=== PATIENT | male | born 1995 | race Caucasian/White ===

== ENCOUNTER 2020-05-29 16:16 | Emergency (ER) | payer MEDICAID, SELFPAY ==
[2020-05-29 16:17] VITALS: BP 139/99; PULSE 102; RESP 16; TEMP 36.9; O2SAT 98; BMI 26.2
--- NOTE | 2020-05-29 16:33 | ED.VIS.GEN ---
History of Present Illness Chief Complaint: Dental Informant: Patient Onset: Weeks Context: Gradual Onset Current Severity: Moderate Maximum Severity: Moderate Narrative: Patient presents secondary to dental pain and facial swelling. Patient states that he had a root canal in the past and the cap came off the tooth. He did not go get it taken care of immediately and approximately 2 weeks ago started having increased pain. He was seen by his dentist a week ago and placed on clindamycin. He was told he needs to see a oral surgeon. Patient states the pain is improved however today he had increased facial swelling. No fevers or chills. Past Medical History - Allergies and Home Meds Allergies/Adverse Reactions: Allergies Penicillins Allergy (Verified 05/29/20 16:17) Rash Primary Care Physician: Care Physician,No Primary [Primary Care Provider] - Prior records reviewed: Yes Smoking Status: Never smoker - Family History Maternal Family History: Reports: No pertinent history Review of Systems General: Denies: Chills, Fever Eyes: Denies: Visual changes - bilaterally ENT: Reports: - - Left facial swelling. Denies: Bilateral ear pain Cardiovascular: Denies: Chest pain Respiratory: Denies: Dyspnea, Cough Gastrointestinal: Denies: Abdominal pain, Nausea, Vomiting, Diarrhea Genitourinary: Denies: Dysuria Musculoskeletal: Denies: Swelling, Extremity Pain Skin: Denies: Rash Neurological: Denies: Headache Hematologic: Denies: Easy bruising, Easy bleeding Allergy: Denies: Uticaria Physical Exam Vital Signs/Narrative: Vital Signs Temp Pulse Resp BP Pulse Ox 05/29/20 16:17 98.5 F 102 H 16 139/99 H 98 Inital Vital Signs reviewed: Yes General: Well nourished, Well developed Eyes: Perrl, EOMI ENT: - - Mild left facial swelling. No significant erythema or warmth. Intraoral examination reveals left maxillary molars to be decayed and broken. No surrounding gum edema. No trismus. Cardiovascular: Regular rate, Regular rhythm, No murmurs Respiratory: No distress, CTA bilaterally Abdomen: Soft, Nontender Skin: Normal color Neurological: Alert, Oriented x3 Psychological: Normal affect Diagnostic/Tx/Re-eval - Medical Decision Making Patient has an allergy to penicillin and has been on clindamycin for the past week. He has 3 days of clindamycin left. We will place him on Cipro and Flagyl for oral coverage. He will be referred to Dr. Greenfield as oral surgeon. Patient is given return instructions. ED Disposition - Plan for ED Patient: Disposition: Home or Assisted Living Diagnosis: Dental abscess Instructions: ED Dental Abscess Facial Cellulitis Prescriptions: Ciprofloxacin [Cipro] 500 mg PO BID #14 tab Transmission Status: Pending to [facility] metroNIDAZOLE [Flagyl] 500 mg PO Q6H #40 tab Transmission Status: Pending to [facility] Referrals: Srinivas Greenfield DDS [STAFF PHYSICIAN] -
[2020-05-29] MEDS: Ciprofloxacin 500 MG Tablet PO (16:45)
[2020-05-29] MEDS: metroNIDAZOLE 500 MG Tablet PO (16:45)
[2020-05-29 16:49] VITALS: PULSE 103; RESP 15; O2SAT 99
== END 2020-05-29 16:49 | disposition home or self-care (01) ==
PROVIDERS: Emergency Provider Emergency Medicine
DX: K04.7 Periapical abscess without sinus (principal); K02.9 Dental caries, unspecified; Z79.899 Other long term (current) drug therapy; Z88.0 Allergy status to penicillin
CPT/HCPCS: 99283

== ENCOUNTER 2020-12-21 20:04 | Emergency (ER) | payer MEDICAID, SELFPAY ==
[2020-12-21 20:06] VITALS: BP 142/102; PULSE 95; RESP 16; TEMP 36.4; O2SAT 100; BMI 22.0
[2020-12-21 22:05] LABS: Absolute Lymphocyte Count 3.18 X10^3/uL (0.83-4.51); Absolute Neutrophil Count 6.5 X10^3/uL (2.0-7.7); Basophil# 0.04 X10^3/uL; Basophil% 0.4 % (0-1); Eosinophil# 0.22 X10^3/uL; Hematocrit 50.9 % (40-54); Lymphocyte # 3.18 X10^3/ul (0.83-4.51); Lymphocyte % 29.1 % (19-41); Mean Corp Hgb Conc 33.4 g/dL (32-36); Mean Corpuscular Hgb 31.4 pg (27.0-32.0); Mean Corpuscular Volume 93.9 fL (80-94); Mean Platelet Vol. 9.9 fl (6.2-12.0); Monocyte# 0.98 X10^3/uL; NRBC Flagged by Analyzer 0 % (0-5); Neutrophil # 6.47 X10^3/uL (2.7-7.7); Neutrophil % 59.1 % (47-70); Platelet Count 227 K/mm3 (150-450); RBC Distribution Width CV 12.1 % (11.6-14.6); RBC Distribution Width SD 41.8 fl (35.1-43.9); Red Blood Count 5.42 M/mm3 (4.6-6.2); White Blood Count 10.9 K/mm3 (4.4-11.0)
[2020-12-21 22:24] LABS: Alcohol, Blood (Medical)-Serum < 3.0 mg/dL
[2020-12-21 22:25] LABS: Anion Gap 5 (5-15); BUN 12 mg/dL (7-18); BUN/Creat Ratio 13.8 RATIO (10-20); Chloride 104 mmol/L (98-107); Creatinine, Serum 0.87 mg/dL (0.70-1.30); EST Glomerular Filtration Rate 113 mL/min (>60); Est Glom Filt Rate - Afr Amer 136 mL/min (>60); Glucose 98 mg/dL (74-106); Potassium 3.8 mmol/L (3.5-5.1); Sodium Level 138 mmol/L (136-145)
== END 2020-12-21 22:35 | disposition left against medical advice (07) ==
LOC: ED 22:48
DX: Z53.21 Procedure and treatment not carried out due to patient leaving prior to being seen by health care provider (principal)
CPT/HCPCS: 36415; 80048; 82077; 85025; 87426

== ENCOUNTER 2020-12-21 23:35 | Emergency (ER) | payer MEDICAID, SELFPAY ==
[2020-12-21 23:35] VITALS: BP 135/84; PULSE 108; RESP 16; TEMP 36.6; O2SAT 97; BMI 22.0
--- NOTE | 2020-12-22 00:49 | EDS_ITS ---
HPI History of Present Illness Chief Complaint: Substance Abuse Informant: patient Narrative Narrative: Here for evaluation stating his parents wanted him to get help. Marijuana use since a teenager however his last use was a week ago. He denies any symptoms. He has been sleeping however in the streets. He states he asked to go home and part of the criteria was to get help first. Currently denies any symptoms. Denies suicidal or homicidal ideations. Denies alcohol use, denies benzo use, denies opiate use. No other complaints Prior similar symptoms: Yes PFSH PFSH Home Medications ciprofloxacin HCl 500 mg PO BID #14 tab 05/29/20 [Rx Last Taken Unknown] clindamycin HCl 150 mg PO Q4H 05/29/20 [History Last Taken 05/29/20] metronidazole 500 mg PO Q6H #40 tab 05/29/20 [Rx Last Taken Unknown] Allergy/AdvReac Type Severity Reaction Status Date / Time Penicillins Allergy Rash Verified 12/21/20 20:06 Social History Smoking Status: Current every day smoker tobacco type: cigarettes ROS ROS ED Constitutional Constitutional ED: Denies chills, fever(s) or sweats Eyes Eyes: Denies change in vision ENT ENT ED: Denies dysphagia or sore throat Cardiovascular Cardiovascular: Denies chest pain, leg edema, palpitations or racing heartbeat Respiratory/Chest Respiratory/Chest: Denies cough, dyspnea or dyspnea on exertion Gastrointestinal Gastrointestinal: Denies abdominal pain, diarrhea, nausea or vomiting Genitourinary Genitourinary ED: Denies dysuria, hematuria or urinary frequency Musculoskeletal Musculoskeletal: Denies back pain, extremity pain or neck pain Integumentary Denies rash or wounds Neurologic Neurologic: Denies headache(s), paresthesias or weakness EXAM Physical Exam Const Vital Signs: 12/21/20 23:35 Temperature 98 F Temperature Source Temporal Pulse Rate 108 H Respiratory Rate 16 Blood Pressure 135/84 H Blood Pressure Mean 101 Pulse Ox 97 Oxygen Delivery Method Room Air Positive well nourished and well developed General Appearance ED: well developed and NAD HEENT Reports moist mucous membranes normocephalic and atraumatic Eyes PERRL, EOMs intact bilaterally and conjunctivae normal General Eye ED: Yes normal appearance of both eyes Neck no lymphadenopathy and supple General: Negative for tenderness Chest Wall Chest: Negative for tenderness Resp normal respiratory effort and normal air movement Effort and Inspection: symmetric chest movement; Negative for respiratory distress Cardio regular rate, regular rhythm and no murmurs Peripheral Pulses: pulses 2+ throughout GI normal to inspection, nondistended, normoactive bowel sounds and non-tender Palpation: Negative for guarding or rebound tenderness present Back/Spine no CVA tenderness and no thoracic nor lumbar tenderness Extremity normal to inspection General Extremety ED: Negative for edema or tenderness General Extremity: Negative for edema Neuro oriented x3 and no sensory deficits noted Sensorium / Orientation: awake and alert Psych mental status grossly normal Skin no rashes or lesions noted and no wounds MDM MDM MDM Narrative Medical decision making narrative: Patient nontoxic here for assistance however his use is speed and marijuana. His last use was a week ago. There is no current treatment plan that would require inpatient management. Discussed this with the patient. He understands. He is given follow-up with [facility] for outpatient assistance if needed. Discharge Plan Triage Chief Complaint: Substance Abuse ED Provider: Paco Barber Dx/Rx/DC Orders Clinical Impression: Marijuana use, Amphetamine and psychostimulant dependence Instructions: Understanding Synthetic Marijuana, Understanding Methamphetamine ... Prescriptions: No Action clindamycin HCl 150 MG capsule 150 mg PO Q4H RF: 0 ciprofloxacin HCl 500 MG tablet 500 mg PO BID Qty: 14 RF: 0 metronidazole 500 MG tablet 500 mg PO Q6H Qty: 40 RF: 0 Primary Care Provider: Care Physician,No Primary Referrals: Care Physician,No Primary [Primary Care Provider] - Activity Restrictions/Additional Instructions: Follow up with [address] [place] [id number] Disposition Disposition: Home, Self Care
== END 2020-12-22 01:00 | disposition home or self-care (01) ==
PROVIDERS: Emergency Provider Emergency Medicine
DX: F15.20 Other stimulant dependence, uncomplicated (principal); F17.210 Nicotine dependence, cigarettes, uncomplicated; Z79.899 Other long term (current) drug therapy; Z53.21 Procedure and treatment not carried out due to patient leaving prior to being seen by health care provider
CPT/HCPCS: 36415; 80048; 82077; 85025; 87426; 99282

== ENCOUNTER 2021-01-19 04:51 | Emergency (ER) | payer MEDICAID, SELFPAY ==
[2021-01-19 04:54] VITALS: BP 136/78; PULSE 89; RESP 16; TEMP 36.6; O2SAT 98; BMI 24.3
--- NOTE | 2021-01-19 05:51 | EX.ED.VIS.UR ---
HPI HPI - URI History of Present Illness Chief Complaint: Cold Sx Informant: patient Onset/Context/Timing Onset: Days Context: Gradual Onset Timing: Continuous Current Severity: Mild Maximum Severity: Mild Associated Symptoms Associated Symptoms: Positive for Nasal Congestion, Headache, Nausea and Nonproductive cough; Negative for Vomiting, Diarrhea and Shortness of Breath Narrative Narrative: 25-year-old male with URI type symptoms last several days. Wants to be tested for Covid. He is unvaccinated. He does not feel short of breath. He denies any vomiting or diarrhea. He said he had a nonproductive cough subjective fever and chills and a mild headache. He denies any significant past medical history. States he is not currently on any medications. Prior similar symptoms: Yes Recent Illness/Hospitalization: No ROS ROS ED ROS Narrative Cough. Subjective fever and chills. Mild headache. Review of Systems ROS Unobtainable: Denies due to encephalopathy Constitutional Constitutional ED: Reports chills, fever(s) and subjective Eyes Eyes: Denies change in vision ENT ENT ED: Denies ear pain or sore throat Cardiovascular Cardiovascular: Denies chest pain Respiratory/Chest Respiratory/Chest: Reports cough; Denies dyspnea Gastrointestinal Gastrointestinal: Reports nausea; Denies abdominal pain, diarrhea or vomiting Genitourinary Genitourinary ED: Denies dysuria Musculoskeletal Musculoskeletal: Denies myalgias Integumentary Denies rash Neurologic Neurologic: Reports headache(s) Psychiatric Psychiatric: Denies depression Endocrine Endocrinology: Denies polyuria Hematologic/Lymphatic Hematologic/Lymphatic: Denies easy bruising Allergic/Immunologic Allergic/Immunologic ED: Denies urticaria PFSH PFSH Medical History no medical history no medical history Home Medications NK 01/19/21 [History Last Taken Unknown] Allergy/AdvReac Type Severity Reaction Status Date / Time Penicillins Allergy Rash Verified 01/19/21 04:52 Surgical History no surgical history Social History Smoking Status: Current every day smoker tobacco type: cigarettes EXAM Physical Exam Narrative Exam Narrative: Young healthy male no acute distress vital signs stable afebrile. Pulse ox 90% on room air no hypoxia. Exam normal. HEENT exam normal. Lungs are clear equal symmetrical bilaterally. Heart regular rate and rhythm. Otherwise unremarkable. Const Vital Signs: 01/19/21 04:54 01/19/21 04:57 Temperature 97.9 F Temperature Source Temporal Pulse Rate 89 Respiratory Rate 16 Respiratory Pattern Normal Blood Pressure 136/78 H Blood Pressure Mean 97 Pulse Ox 98 Positive well nourished and well developed; Negative for obese, cachectic or contractures General Appearance ED: well developed and NAD; Negative for cachectic, contractures, cyanotic, diaphoretic or pallor Nutritional Appearance: Negative for cachectic or obese HEENT Reports moist mucous membranes normocephalic and atraumatic Eyes PERRL and EOMs intact bilaterally Neck no lymphadenopathy, supple, no meningeal signs and no JVD General: Negative for anterior neck swelling or lymphadenopathy Resp normal respiratory effort and clear to auscultation bilaterally Auscultation: Negative for rales, rhonchi or wheezes Cardio S1 normal heart sound, S2 normal heart sound and no murmurs Rate: regular rate Rhythm: regular rhythm GI non-tender, non-distended and no masses Inspection: Negative for abdominal distention Auscultation: normoactive bowel sounds Palpation: soft; Negative for tender or guarding Back/Spine no CVA tenderness and normal ROM General Back: Negative for CVA tenderness Extremity normal to inspection and full ROM General Extremety ED: Negative for cyanosis or tenderness General Extremity: Negative for cyanosis Neuro oriented x3 Sensorium / Orientation: alert, oriented to person, oriented to place and oriented to time; Negative for orientation impaired, lethargic or stuporous Motor Exam: strength 5/5 throughout Psych mental status grossly normal Skin General Skin Exam: Negative for jaundice or pallor Lesions: no lesions Rashes: no rashes MDM MDM MDM Narrative Medical decision making narrative: 25-year-old male URI symptoms. Covid test pending. Lungs are clear there is no signs of pneumonia. His vital signs are stable and he is not hypoxic. Repeat exam patient is doing well at 6:44 AM and he will be discharged home. Lab Data Attestation: I reviewed the patient's lab results. Lab results narrative: He does not need imaging. Covid antigen is negative. Discharge Plan Triage Chief Complaint: Cold Sx ED Provider: Lazaro Azul Dx/Rx/DC Orders Clinical Impression: Acute viral syndrome Instructions: ED Viral Syndrome (Adult) Prescriptions: No Action NK RF: 0 Primary Care Provider: Care Physician,No Primary Referrals: Care Physician,No Primary [Primary Care Provider] - Activity Restrictions/Additional Instructions: Plenty of fluids and rest. Tylenol and Motrin for body aches and pain. And fever. Follow-up if not improving. Return if worse. Disposition Disposition: Home, Self Care
== END 2021-01-19 06:47 | disposition home or self-care (01) ==
PROVIDERS: Emergency Provider Emergency Medicine
DX: B34.9 Viral infection, unspecified (principal); Z20.822 Contact with and (suspected) exposure to COVID-19; R09.81 Nasal congestion; R11.0 Nausea; R51.9 Headache, unspecified; R05.9 Cough, unspecified; F17.210 Nicotine dependence, cigarettes, uncomplicated
CPT/HCPCS: 87426; 99283

== ENCOUNTER 2021-09-06 19:28 | Emergency (ER) | payer MEDICAID, SELFPAY ==
[2021-09-06 19:30] VITALS: BP 130/88; PULSE 92; RESP 14; TEMP 36.6; O2SAT 98; BMI 50.3
--- NOTE | 2021-09-06 19:40 | EX.ED.DYSGE1 ---
HPI History of Present Illness Chief Complaint: Abscess Detail of Chief Complaint: Facial abscess x3 days Informant: patient Narrative Narrative: Patient presents to the emergency department with a left-sided facial abscess that started 3 days ago. Patient initially thought it was like a pimple so he try to open up and drain and was able to drain some pus from it. Patient states then it subsequently started filling up again so he drained it a second time. Patient denies any fevers. He has no medical history otherwise. Patient is allergic to penicillin. PFSH PFSH Medical History no medical history Home Medications clindamycin HCl [Cleocin HCl] 300 mg PO Q6H #40 capsule 09/06/21 [Rx Last Taken Unknown] Allergy/AdvReac Type Severity Reaction Status Date / Time Penicillins Allergy Rash Verified 09/06/21 19:29 Surgical History no surgical history Social History Smoking Status: Current every day smoker tobacco type: cigarettes ROS ROS ED Constitutional Constitutional ED: Reports systems reviewed and no addt'l complaints, except as documented; Denies body ache(s), change in weight or chills Eyes Eyes: Denies acute decrease in peripheral vision, change in vision, double vision or loss of vision ENT ENT ED: Reports none and other Details: Redness and swelling to left side of face ; Denies ear pain, lip swelling, loss taste/smell, neck pain, otalgia or sore throat Cardiovascular Cardiovascular: Reports none; Denies abdominal pain, chest pain with activity, leg edema, lightheadedness, palpitations, rapid heart rate or syncope Respiratory/Chest Respiratory/Chest: Reports none; Denies change in mental status, dry cough, dyspnea, hemoptysis, shortness of breath at rest or shortness of breath with exertion Gastrointestinal Gastrointestinal: Reports none; Denies abdominal pain, change in stool character, diarrhea, hematemesis, hematochezia, melena, rectal bleeding or vomiting Genitourinary Genitourinary ED: Reports none; Denies abdominal discomfort, anuria, dysuria, genital pain or polyuria Musculoskeletal Musculoskeletal: Reports none; Denies arthralgias, back pain, difficulty walking, extremity pain, muscle weakness or myalgias Integumentary Reports none; Denies abscess or rash Neurologic Neurologic: Reports none; Denies abnormal gait, confusion, focal weakness, frequent falls, headache(s), loss of vision, numbness, paresthesias, radicular pain, vertigo or weakness Psychiatric Psychiatric: Reports systems reviewed and no addt'l complaints, except as documented and none; Denies behavioral changes, confusion, difficulty concentrating, hallucinations, suicidal ideation, tactile hallucinations or visual hallucinations Endocrine Endocrinology: Denies none, cold intolerance, excessive sweating, fatigue or heat intolerance Hematologic/Lymphatic Hematologic/Lymphatic: Reports none; Denies anemia, easy bleeding or easy bruising Allergic/Immunologic Allergic/Immunologic ED: Denies as per HPI, none, lip swelling, mouth swelling, throat swelling, tongue swelling or hives EXAM Physical Exam Const Vital Signs: 09/06/21 19:30 Temperature 98 F Temperature Source Temporal Pulse Rate 92 Respiratory Rate 14 Blood Pressure 130/88 H Blood Pressure Mean 102 Pulse Ox 98 Oxygen Delivery Method Room Air Positive well nourished and well developed General Appearance ED: well developed and NAD HEENT Reports TM's clear and moist mucous membranes HEENT Narrative: Patient has an area of soft tissue swelling left side of face just lateral to the lateral aspect of the lips. There are some subtle fluctuance noted. There is an excoriated area where patient had drained the abscess and there is some scabbing. There is surrounding erythema. Patient has no dental tenderness on exam. I do not feel this is a dental abscess. normocephalic and atraumatic; Negative for trauma or tenderness Tympanic Membrane ED: Yes TM's clear Eyes PERRL and EOMs intact bilaterally General Eye ED: Negative for pale conjunctiva or scleral icterus Neck no lymphadenopathy, supple and no JVD General: Negative for tenderness Chest Wall inspection of chest normal and palpation of chest normal Chest: Negative for tenderness Resp normal respiratory effort and clear to auscultation bilaterally Effort and Inspection: Negative for respiratory distress or pain with movement Auscultation: Negative for rhonchi, wheezes or diminished lung sounds Cardio regular rate, regular rhythm, S1 normal heart sound, S2 normal heart sound and no murmurs Peripheral Pulses: pulses 2+ throughout GI normal to inspection, nondistended, normoactive bowel sounds, soft to palpation, non-tender, non-distended and no masses Back/Spine no CVA tenderness and no thoracic nor lumbar tenderness Extremity normal to inspection General Extremety ED: Negative for edema General Extremity: Negative for edema Neuro oriented x3, CN's II-XII intact bilaterally, no sensory deficits noted and gait normal Sensorium / Orientation: awake, alert, oriented to person, oriented to place and oriented to time Motor Exam: strength 5/5 throughout and strength abnormal Psych mental status grossly normal Skin no rashes or lesions noted and no wounds MDM MDM MDM Narrative Medical decision making narrative: Patient had incision and drainage of abscess. Patient will be starting clindamycin given first dose in the emergency department. Patient advised to return if increasing pain, redness, swelling, fevers, or condition should worsen anyway. Procedures Other Procedures Procedure(s): Incision and drainage of left facial abscess-area sterilely draped and prepped. Skin cleansed with Shur-Clens and anesthetized locally with 1% lidocaine total of 3 cc. Using an 11 blade a 1 cm incision was made into the most fluctuant portion of the suspected abscess. Immediately return large amount of free-flowing purulent debris. With pressure I was able to express large amount of purulent debris from the wound. I irrigated the area with saline. Clean dressing was applied. Patient tolerated procedure well. Discharge Plan Triage Chief Complaint: Abscess ED Provider: Whitney Rendon Dx/Rx/DC Orders Clinical Impression: Encounter for drainage of abscess Instructions: ED Abscess Incision And Drainage Prescriptions: New clindamycin HCl [Cleocin HCl] 300 MG capsule 300 mg PO Q6H Qty: 40 RF: 0 Primary Care Provider: Care Physician,No Primary Referrals: Care Physician,No Primary [Primary Care Provider] - Disposition Disposition: Home, Self Care
[2021-09-06] MEDS: Clindamycin HCl 150 MG Capsule 300 MG PO (20:06)
[2021-09-06] MEDS: Lidocaine 1% (5 ml sdv) 5 ML Vial 4 ML INFILT (20:07)
== END 2021-09-06 21:24 | disposition home or self-care (01) ==
PROVIDERS: Emergency Provider Emergency Medicine; Visit Provider Emergency Medicine
DX: L02.01 Cutaneous abscess of face (principal); F17.210 Nicotine dependence, cigarettes, uncomplicated
CPT/HCPCS: 10060; 99283

== ENCOUNTER 2021-10-27 16:22 | Emergency (ER) | payer MEDICAID, SELFPAY ==
[2021-10-27] VITALS (7 sets, daily range): BP systolic 122–147; BP diastolic 77–91; PULSE 75–111; RESP 12–24; TEMP 37; O2SAT 95–98; BMI 22.0
--- NOTE | 2021-10-27 16:30 | CT_ITS ---
EXAMINATION : Head CT w/out contrast HISTORY : Injury/Pain COMPARISON : None. TECHNIQUE : Multiple contiguous axial images were obtained from the skull base to the vertex without intravenous contrast. A radiation dose optimization technique was used for this scan. FINDINGS : The ventricles and sulci are normal in size. There is no evidence for acute intracranial hemorrhage, mass effect, or midline shift. There is no extra-axial fluid collection. There is normal antonio-white differentiation, without CT evidence of acute ischemia or infarct. The skull base and calvarium are unremarkable. The orbits are unremarkable. The paranasal sinuses are clear. The mastoid air cells are well-aerated. The soft tissues are unremarkable. CT/Brain/Head without Contrast IMPRESSION: No acute intracranial abnormality. Electronically Signed: Wilfredo Sullivan MD at 18:15 EDT ,
--- NOTE | 2021-10-27 16:30 | CT_ITS ---
INDICATION: Injury/Pain EXAMINATION: CT Spine Cervical W/O Contrast Injection TECHNIQUE: Helically acquired images were obtained of the cervical spine. 2D reformatted images were reviewed. A radiation dose optimization technique was used for this scan. IV Contrast dosage and agent: None. COMPARISON: None. FINDINGS: VERTEBRAE: No fracture or traumatic subluxation. No discrete lytic or blastic abnormality. Normal alignment. Normal craniocervical junction and cervicothoracic junction. DISCS and SPINAL CANAL: Disc heights are preserved. No critical stenosis. NECK SOFT TISSUES: No prevertebral soft tissue swelling. There is no cervical adenopathy. LUNG APICES: Clear. CT/Spine Cervical without Contras IMPRESSION: No evidence of acute cervical spinal fracture or spondylolisthesis. Electronically Signed: Wilfredo Sullivan MD at 18:22 EDT ,
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
[2021-10-27] MEDS: Diphth,Pertuss(Acell),Tet Vac 0.5 ML Vial IM (17:00)
[2021-10-27] MEDS: Lidocaine/Epi/Tetracaine 50 ML 1 APPLIC TOPICAL (17:01)
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
--- NOTE | 2021-10-27 19:22 | RAD_ITS ---
STUDY: X-RAY - LEFT TIBIA AND FIBULA REASON FOR EXAM: Male, 26 years old. Injury/Pain TECHNIQUE: Frontal and lateral view(s) of the tibia and fibula were obtained. COMPARISON: None. FINDINGS: Normal visualized tibia. Normal visualized fibula. There is no demonstrated acute fracture. The soft tissue structures are unremarkable. RAD/Tibia & Fibula 2 Views IMPRESSION: Normal x-ray examination of the tibia and fibula. Electronically Signed: Jesús Herron MD at 20:38 EDT ,
[2021-10-27] MEDS: Acetaminophen 500 MG Tablet 1000 MG PO (19:31)
--- NOTE | 2021-10-27 19:38 | RAD_ITS ---
STUDY: X-RAY - LEFT ANKLE REASON FOR EXAM: Male, 26 years old. Injury/Pain TECHNIQUE: 3 view(s) of the ankle. COMPARISON: None. FINDINGS: Normal visualized distal tibia and fibula. Normal medial and lateral malleoli. Normal tibiotalar articulation and ankle mortise. Normal visualized talus and calcaneus. The visualized subtalar, talonavicular, calcaneocuboid and tarsal articulations are normal. There is no demonstrated fracture. The soft tissue structures are unremarkable. RAD/Ankle min 3 Views IMPRESSION: Normal x-ray examination of the ankle. Electronically Signed: Jesús Herron MD at 20:40 EDT ,
== END 2021-10-27 21:17 | disposition home or self-care (01) ==
PROVIDERS: Emergency Provider Emergency Medicine; Visit Provider Emergency Medicine
DX: S01.01XA Laceration without foreign body of scalp, initial encounter (principal); R40.2412 Glasgow coma scale score 13-15, at arrival to emergency department; S41.111A Laceration without foreign body of right upper arm, initial encounter; Z23 Encounter for immunization; R41.3 Other amnesia; M54.2 Cervicalgia; V13.4XXA Pedal cycle driver injured in collision with car, pick-up truck or van in traffic accident, initial encounter; Y93.55 Activity, bike riding; F17.210 Nicotine dependence, cigarettes, uncomplicated; Z59.00 Homelessness unspecified
CPT/HCPCS: 12001; 70450; 72125; 73590; 73610; 90715; 99285

== ENCOUNTER 2021-11-11 20:43 | Emergency (ER) | payer MEDICAID, SELFPAY ==
[2021-11-11 20:44] VITALS: BP 130/87; PULSE 115; RESP 18; TEMP 36.6; O2SAT 100; BMI 22.8
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
== END 2021-11-11 23:09 | disposition home or self-care (01) ==
PROVIDERS: Emergency Provider Emergency Medicine; Visit Provider Emergency Medicine
DX: S01.01XD Laceration without foreign body of scalp, subsequent encounter (principal); V99.XXXD Unspecified transport accident, subsequent encounter; F17.210 Nicotine dependence, cigarettes, uncomplicated
CPT/HCPCS: 99282

== ENCOUNTER 2021-12-21 17:13 | Emergency (ER) | payer MEDICAID, SELFPAY ==
[2021-12-21 17:14] VITALS: BP 125/76; PULSE 112; RESP 14; TEMP 35.7; BMI 23.4
[2021-12-21 18:14] VITALS: BP 125/76; PULSE 112; RESP 14; TEMP 35.7
--- NOTE | 2021-12-21 18:35 | EX.ED.DYSGE1 ---
HPI History of Present Illness Chief Complaint: Abscess Detail of Chief Complaint: Submental chin abscess. Informant: patient Onset/Context/Timing Onset: Days Context: Gradual Onset Timing: Continuous Current Severity: Mild Maximum Severity: Mild Narrative Narrative: 26-year-old male no seen past medical history. Has had an abscess before it need to be drained. He said several days ago he developed pain and swelling below his chin. Now is worse. He denies any fever or chills. Also on his right hand index finger on the dorsum on the proximal phalanx he opened up a wound there and had some purulent discharge. Has also been there several days. Prior similar symptoms: Yes Recent Illness/Hospitalization: No PFSH PFSH Medical History no medical history no medical history Home Medications acetaminophen 650 mg tablet,extended release (Tylenol 8 Hour) 650 mg PO Q8H PRN pain #30 tabs 10/27/21 [Rx Last Taken Unknown] clindamycin HCl 150 mg capsule 300 mg PO 4X/DAY #80 caps 12/21/21 [Rx Last Taken Unknown] Allergy/AdvReac Type Severity Reaction Status Date / Time Penicillins Allergy Rash Verified 12/21/21 17:14 Social History Smoking Status: Current every day smoker tobacco type: cigarettes ROS ROS ED ROS Narrative Abscess. Review of Systems ROS Unobtainable: Denies due to encephalopathy Constitutional Constitutional ED: Denies chills or fever(s) Eyes Eyes: Denies blurry vision ENT ENT ED: Denies ear pain Cardiovascular Cardiovascular: Denies chest pain Respiratory/Chest Respiratory/Chest: Denies cough Gastrointestinal Gastrointestinal: Denies abdominal pain Genitourinary Genitourinary ED: Denies dysuria Musculoskeletal Musculoskeletal: Denies arthralgias Integumentary Reports abscess Neurologic Neurologic: Denies headache(s) Psychiatric Psychiatric: Denies anxiety Endocrine Endocrinology: Denies cold intolerance Hematologic/Lymphatic Hematologic/Lymphatic: Reports none; Denies anemia Allergic/Immunologic Allergic/Immunologic ED: Denies mouth swelling or tongue swelling EXAM Physical Exam Narrative Exam Narrative: 26-year-old male no acute distress. Vital signs stable afebrile. H EENT exam give dry reactive light. Posterior pharynx normal. Submental to the chin there is an abscess on the skin which is tender. Mildly fluctuant. Will need to be drained. Trachea midline. No lymphadenopathy. Lungs clear to auscultation. Heart regular rhythm. Abdomen soft. Moving all 4 extremities. Dorsum of his right hand on the index finger proximal phalanx there is also an infection. Nothing to drain. He had previously unroofed this and get some drainage out. He has full flexion-extension all digits. There is no lymphangitic streaking. Const Vital Signs: 12/21/21 17:14 12/21/21 18:13 12/21/21 18:14 Temperature 96.2 F L 96.2 F L Temperature Source Temporal Temporal Pulse Rate 112 H 112 H Respiratory Rate 14 14 Respiratory Effort Normal Non-Labored Respiratory Pattern Normal Blood Pressure 125/76 H 125/76 H Blood Pressure Mean 92 92 Pulse Ox 12/21/21 20:45 Temperature Temperature Source Pulse Rate 98 Respiratory Rate 16 Respiratory Effort Respiratory Pattern Blood Pressure 120/70 Blood Pressure Mean 86 Pulse Ox 97 Positive well nourished and well developed; Negative for obese, cachectic, contractures or unkempt General Appearance ED: well developed and NAD; Negative for unkempt, cachectic, contractures, cyanotic, diaphoretic or pallor Nutritional Appearance: Negative for cachectic or obese HEENT Reports moist mucous membranes; Denies dry mucous membranes Negative for trauma or tenderness Mouth ED: No dry mucous membranes Mouth: No dry mucous membranes Eyes PERRL and EOMs intact bilaterally General Eye ED: Negative for pale conjunctiva or scleral icterus Neck no lymphadenopathy, supple and no JVD Neck Narrative: Submental abscess right side of his chin. General: tenderness Chest Wall inspection of chest normal and palpation of chest normal Chest: Negative for other Resp normal respiratory effort and clear to auscultation bilaterally Effort and Inspection: Negative for retractions Auscultation: Negative for rales, rhonchi or wheezes Cardio regular rate, regular rhythm, S1 normal heart sound, S2 normal heart sound and no murmurs Palpation: Negative for palpable S3 Rate: Negative for bradycardia Rhythm: Negative for abnormal rhythm GI normal to inspection, nondistended, normoactive bowel sounds, non-tender, non-distended and no masses Inspection: Negative for abdominal distention Auscultation: normoactive bowel sounds Palpation: soft; Negative for tender, guarding, splenomegaly or mass Back/Spine no CVA tenderness Extremity normal to inspection Extremity Narrative: Right index finger infection. Full range of motion. No sausage digit. No lymphangitic streaking. General Extremety ED: Yes edema and tenderness General Extremity: edema Neuro oriented x3 and CN's II-XII intact bilaterally Sensorium / Orientation: alert; Negative for orientation impaired Motor Exam: strength 5/5 throughout Psych mental status grossly normal Appearance: Negative for unkempt Attitude: No agitated Mood & Affect: Negative for depressed, anxious or tearful Skin no rashes or lesions noted and No no wounds General Skin Exam: elasticity normal; Negative for jaundice or pallor Rashes: No rashes noted Trauma: Negative for abrasion Wounds: wounds noted MDM MDM MDM Narrative Medical decision making narrative: 26-year-old male with a submental abscess that will need I&D. He has a penicillin allergy he will be started on clindamycin which he has had before in the past. He also has a infection on the skin of his right index finger which does not need to be drained at this time. Patient had firm indurated tissue in his submental region of his chin. Red and tender. Nurses applied let. Locally anesthetized with lidocaine. Made about 1-1 and half centimeter incision. Blood but no cas pus. Probed with a forcep and again no pus. This is mainly just infected indurated tissue without a walled off pocket of pus. Patient be given a dose of clindamycin here. Placed on it for 10 days. Follow-up with starts in clinic. Procedures Other Procedures Procedure(s): Incision and drainage of submental region near chin. Local anesthetized with let and lidocaine subcu. Made a 1 cm incision. Blood but no pus. Probed the wound again no significant pus. Discharge Plan Triage Chief Complaint: Abscess ED Provider: Lazaro Azul Dx/Rx/DC Orders Clinical Impression: Abscess Instructions: Abscess Drainage Prescriptions: New clindamycin HCl 150 mg capsule 300 mg PO 4X/DAY Qty: 80 0RF No Action acetaminophen [Tylenol 8 Hour] 650 mg tablet extended release 650 mg PO Q8H PRN (Reason: pain) Qty: 30 0RF Primary Care Provider: Care Physician,No Primary Referrals: Sofía Dlay [Non-Staff] - 3-5 Days Care Physician,No Primary [Primary Care Provider] - Activity Restrictions/Additional Instructions: Warm compresses to the infection on your chin. Also to your finger. Clindamycin 4 times a day 300 mg each time for 10 days. Motrin and Tylenol for pain. Follow-up with the [facility] for further evaluation. Return if a lot worse. Disposition Disposition: Home, Self Care
[2021-12-21] MEDS: Lidocaine/Epi/Tetracaine 50 ML 1 APPLIC TOPICAL (19:11)
[2021-12-21] MEDS: Lidocaine 1% (20 ml mdv) 20 ML Vial 6 ML INFILT (19:11)
[2021-12-21 20:45] VITALS: BP 120/70; PULSE 98; RESP 16; O2SAT 97
[2021-12-21] MEDS: Ibuprofen 600 MG Tablet PO (23:17)
[2021-12-21] MEDS: Clindamycin HCl 150 MG Capsule 300 MG PO (23:17)
[2021-12-21 23:37] VITALS: BP 120/71; PULSE 89; RESP 16; O2SAT 97
== END 2021-12-21 23:38 | disposition home or self-care (01) ==
PROVIDERS: Emergency Provider Emergency Medicine; Visit Provider Emergency Medicine
DX: L02.01 Cutaneous abscess of face (principal); L08.9 Local infection of the skin and subcutaneous tissue, unspecified; F17.210 Nicotine dependence, cigarettes, uncomplicated
CPT/HCPCS: 10060; 99283

== ENCOUNTER 2021-12-24 22:26 | Emergency (ER) | payer MEDICAID, SELFPAY ==
[2021-12-24 22:27] VITALS: BP 130/88; PULSE 100; RESP 16; TEMP 36.4; O2SAT 98; BMI 23.6
--- NOTE | 2021-12-24 22:49 | EX.ED.DYSGE1 ---
HPI History of Present Illness Chief Complaint: Abscess Informant: patient Narrative Narrative: Patient presents for concerns of drainage from his chin area. He was seen 4 days ago had incision and drainage in the lower chin region. He is placed on clindamycin. Minimal drainage from the lower section however due to drainage of higher he was concerned. There is no fevers. Also reported he was seen for finger wound does continue to drain but the redness has improved. Prior similar symptoms: Yes PFSH PFSH Home Medications acetaminophen 650 mg tablet,extended release (Tylenol 8 Hour) 650 mg PO Q8H PRN pain #30 tabs 10/27/21 [Rx Last Taken Unknown] clindamycin HCl 150 mg capsule 300 mg PO 4X/DAY #80 caps 12/21/21 [Rx Last Taken Unknown] Allergy/AdvReac Type Severity Reaction Status Date / Time Penicillins Allergy Rash Verified 12/24/21 22:29 Social History Smoking Status: Current every day smoker tobacco type: cigarettes ROS ROS ED Constitutional Constitutional ED: Denies chills, fever(s) or sweats Eyes Eyes: Denies change in vision ENT ENT ED: Denies dysphagia or sore throat Cardiovascular Cardiovascular: Denies chest pain, leg edema, palpitations or racing heartbeat Respiratory/Chest Respiratory/Chest: Denies cough, dyspnea or dyspnea on exertion Gastrointestinal Gastrointestinal: Denies abdominal pain, diarrhea, nausea or vomiting Genitourinary Genitourinary ED: Denies dysuria, hematuria or urinary frequency Musculoskeletal Musculoskeletal: Denies back pain, extremity pain or neck pain Integumentary Reports abscess and wounds; Denies rash Neurologic Neurologic: Denies headache(s), paresthesias or weakness EXAM Physical Exam Const Vital Signs: 12/24/21 22:27 12/24/21 23:37 Temperature 97.5 F L 97.5 F L Temperature Source Temporal Temporal Pulse Rate 100 100 Respiratory Rate 16 16 Blood Pressure 130/88 H 130/88 H Blood Pressure Mean 102 102 Pulse Ox 98 98 Oxygen Delivery Method Room Air Room Air Positive well nourished and well developed General Appearance ED: well developed and NAD HEENT Reports moist mucous membranes HEENT Narrative: Patient with carrillo and mustache, right lower chin noted previous incision with scabbing there is circumferential abscess with fluctuance on the anterior aspect of the chin, no active drainage. normocephalic and atraumatic Eyes PERRL, EOMs intact bilaterally and conjunctivae normal General Eye ED: Yes normal appearance of both eyes Neck no lymphadenopathy and supple General: Negative for tenderness Chest Wall Chest: Negative for tenderness Resp normal respiratory effort and normal air movement Effort and Inspection: symmetric chest movement; Negative for respiratory distress Cardio regular rate, regular rhythm and no murmurs Peripheral Pulses: pulses 2+ throughout GI normal to inspection, nondistended, normoactive bowel sounds and non-tender Palpation: Negative for guarding or rebound tenderness present Back/Spine no CVA tenderness and no thoracic nor lumbar tenderness Extremity Extremity Narrative: Right hand pinky finger dorsal aspect of the proximal phalanx, open wound with mild drainage's localized erythema there is no streaking into the hand. General Extremety ED: Negative for edema or tenderness General Extremity: Negative for edema Neuro oriented x3 and no sensory deficits noted Sensorium / Orientation: awake and alert Skin no rashes or lesions noted and no wounds MDM MDM MDM Narrative Medical decision making narrative: Patient reports increasing swelling for his chin on antibiotics. His finger wound clinically is improving per history. I discussed prep for incise and drainage in the fluctuant area for which he agreed. During preparation and with local analgesia there is increasing drainage from his previous incision site. I was able to express out significant mount of exudates with fluctuance improved. Additional straight incision was placed over the fluctuant area to assist with continued drainage. He will finish his antibiotics and use Tylenol as needed. Return precautions. Follow-up given as an outpatient. All questions were answered. Procedure note: Verbal consent. Normal sterile conditions. Wound was cleansed alcohol prep pads. Total of 4 cc lidocaine 1% for local analgesia. Upon injection there was increasing fluid drainage from the lower wound site. Exudate drainage continued to drain. Stable express for out. Betadine prep for lower chin portion with a 11 blade straight incision was made there is no additional exudates. Wound cleansed with normal saline. Patient tolerated procedure well. Discharge Plan Triage Chief Complaint: Abscess ED Provider: Paco Barber Dx/Rx/DC Orders Clinical Impression: Abscess of chin, Visit for wound check Instructions: Abscess Drainage Prescriptions: No Action acetaminophen [Tylenol 8 Hour] 650 mg tablet extended release 650 mg PO Q8H PRN (Reason: pain) Qty: 30 0RF clindamycin HCl 150 mg capsule 300 mg PO 4X/DAY Qty: 80 0RF Primary Care Provider: Care Physician,No Primary Referrals: Sofía Daly [Non-Staff] - 1 Week Care Physician,No Primary [Primary Care Provider] - Activity Restrictions/Additional Instructions: Incise and drain increasing exudative drainage of chin. Finish your clindamycin. Tylenol or Motrin as needed. Wound care as discussed. Return if any worsening symptoms. Disposition Disposition: Home, Self Care Discharge Date/Time: 12/24/21 23:44
[2021-12-24 23:37] VITALS: BP 130/88; PULSE 100; RESP 16; TEMP 36.4; O2SAT 98
[2021-12-24] MEDS: Lidocaine 1% (20 ml mdv) 20 ML Vial INFILT (23:38)
== END 2021-12-24 23:44 | disposition home or self-care (01) ==
PROVIDERS: Emergency Provider Emergency Medicine; Visit Provider Emergency Medicine
DX: L02.01 Cutaneous abscess of face (principal); F17.210 Nicotine dependence, cigarettes, uncomplicated
CPT/HCPCS: 10060; 99283

== ENCOUNTER 2022-04-09 09:23 | Emergency (ER) | payer MEDICAID, SELFPAY ==
[2022-04-09 09:24] VITALS: BP 119/76; PULSE 98; RESP 16; TEMP 36.4; O2SAT 98; BMI 22.8
--- NOTE | 2022-04-09 09:53 | EDS_ITS ---
HPI History of Present Illness Chief Complaint: General Illness Informant: patient Onset/Context/Timing Onset: Weeks Context: Gradual Onset Timing: Waxes and wanes Current Severity: Mild Maximum Severity: Moderate Narrative Narrative: Patient presents with concern for COVID. He states he is been sick for the past week or 2 with cough and congestion. He reports subjective fever. [facility] Medical History no medical history no medical history Home Medications NK 04/09/22 [History Last Taken Unknown] Allergy/AdvReac Type Severity Reaction Status Date / Time Penicillins Allergy Rash Verified 04/09/22 09:26 Surgical History no surgical history Social History Smoking Status: Current every day smoker tobacco type: cigarettes ROS ROS ED Constitutional Constitutional ED: Reports chills, fever(s), subjective and sweats Eyes Eyes: Denies change in vision or discharge from eye(s) ENT ENT ED: Denies discharge from eye(s), rhinorrhea or sore throat Cardiovascular Cardiovascular: Denies chest pain or palpitations Respiratory/Chest Respiratory/Chest: Reports cough, dyspnea and sputum Gastrointestinal Gastrointestinal: Denies abdominal pain, diarrhea, nausea or vomiting Genitourinary Genitourinary ED: Denies dysuria Musculoskeletal Musculoskeletal: Denies back pain or extremity pain Integumentary Denies Abrasions or rash Neurologic Neurologic: Denies headache(s) or weakness Psychiatric Psychiatric: Denies anxiety or depression Allergic/Immunologic Allergic/Immunologic ED: Denies lip swelling or urticaria EXAM Physical Exam Const Vital Signs: 04/09/22 09:24 04/09/22 09:30 Temperature 97.6 F L Temperature Source Temporal Pulse Rate 98 Respiratory Rate 16 Respiratory Effort Normal Non-Labored Respiratory Pattern Normal Blood Pressure 119/76 Blood Pressure Mean 90 Pulse Ox 98 Oxygen Delivery Method Room Air Positive well nourished and well developed General Appearance ED: well developed HEENT Reports normocephalic and head/scalp atraumatic Eyes PERRL and EOMs intact bilaterally Neck supple Chest Wall inspection of chest normal and palpation of chest normal Resp normal respiratory effort and clear to auscultation bilaterally Cardio regular rate and regular rhythm GI normal to inspection, nondistended, normoactive bowel sounds Palpation: soft Extremity normal to inspection Neuro oriented x3 and no sensory deficits noted Sensorium / Orientation: alert Motor Exam: strength 5/5 throughout Psych mental status grossly normal Skin no rashes or lesions noted MDM MDM MDM Narrative Medical decision making narrative: Swab for COVID and influenza obtained. Chest x-ray ordered. Radiography Chest X-Ray - ED: 2 View, Read by ED Physician, Normal, Heart, Lungs and Mediastinum Diagnostic Testing: Clinical Impression(s) from Imaging Studies Chest X-Ray 04/09/22 10:05 IMPRESSION: Normal x-ray examination of the chest. Electronically Signed: Jesús Herron MD at 10:29 EST , Treatment and Re-Evaluation Narrative: Repeat evaluation patient resting comfortably. O2 sats are normal. Swab for COVID and influenza are negative. Two-view chest x-ray per my interpretation feels no infiltrate. Radiology interpretation is reviewed and agrees. I did discuss with the patient that I believe his symptoms are all viral in nature and will need to run their course. We discussed symptom control. Return instructions given. Discharge Plan Triage Chief Complaint: General Illness ED Provider: Zaira Jauregui Dx/Rx/DC Orders Clinical Impression: Viral URI with cough Instructions: ED URI, Viral, No Abx (Adult) Prescriptions: No Action NK Primary Care Provider: Care Physician,No Primary Referrals: Petey Espinosa, [Med Staff - Production Supervisor Trainee] - As Needed Care Physician,No Primary [Primary Care Provider] - Disposition Disposition: Home, Self Care
--- NOTE | 2022-04-09 10:05 | RAD_ITS ---
STUDY: X-RAY CHEST REASON FOR EXAM: Male, 26 years old. Cough TECHNIQUE: PA and lateral views of the chest. COMPARISON: February 14, 2017 FINDINGS: The lungs are clear and expanded. There is no demonstrated pleural abnormality. Normal size heart. Normal mediastinum and zaire. Normal visualized pulmonary arteries. Normal visualized aortic arch and descending thoracic aorta. Normal visualized thoracic spine. Normal visualized ribs, clavicles, and shoulders. There is no demonstrated abnormality of the visualized soft tissue structures of the upper abdomen. RAD/Chest PA and Lateral IMPRESSION: Normal x-ray examination of the chest. Electronically Signed: Jesús Herron MD at 10:29 EST ,
[2022-04-09 11:07] VITALS: RESP 18
== END 2022-04-09 11:08 | disposition home or self-care (01) ==
PROVIDERS: Emergency Provider Emergency Medicine; Visit Provider Emergency Medicine
DX: J06.9 Acute upper respiratory infection, unspecified (principal); F17.210 Nicotine dependence, cigarettes, uncomplicated; Z20.822 Contact with and (suspected) exposure to COVID-19
CPT/HCPCS: 71046; 87428; 99282

== ENCOUNTER → 2023-02-26 | Outpatient (CLI) | payer MEDICAID, SELFPAY ==
--- NOTE | 2023-02-26 08:24 | MRI_ITS ---
EXAM: MR HEAD WITHOUT AND WITH INTRAVENOUS CONTRAST CLINICAL INDICATION: MIGRAINES TECHNIQUE: Multiplanar and multisequence MR images of the brain were obtained without and with intravenous contrast. CONTRAST: 19 mL of IV Clariscan. COMPARISON: CT head without contrast 10/27/2021. FINDINGS: BRAIN AND EXTRA-AXIAL SPACES: No intra- or extra-axial hemorrhage. No focal signal abnormalities throughout the brain parenchyma. No abnormal enhancing lesions intra-axially and extra-axially. SELLA: Unremarkable. Normal sella turcica, pituitary gland, infundibular stalk, optic chiasm and hypothalamus. AUDITORY SYSTEM: Unremarkable. The internal auditory canals are patent. BONES/JOINTS: Unremarkable. No discrete lytic or blastic abnormalities. SINUSES: Mild mucosal edema in the ethmoid sinus and minimal mucosal edema in the right frontal sinuses and sphenoid sinusitis. MASTOID AIR CELLS: Unremarkable as visualized. Clear. ORBITS: Unremarkable as visualized. Both globes, extraocular muscles, optic nerves and retrobulbar fat appear unremarkable. 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 Electronically Signed: Aleksandr Medrano MD at 11:07 EST ,
== END | disposition home or self-care (01) ==
LOC: MRI 08:19
PROVIDERS: Referring Provider Nurse Practitioner Family; Visit Provider Nurse Practitioner Family
DX: G43.009 Migraine without aura, not intractable, without status migrainosus (principal); R41.3 Other amnesia
CPT/HCPCS: 70553; A9575

== ENCOUNTER 2023-04-24 21:24 | Emergency (ER) | payer MEDICAID, SELFPAY ==
[2023-04-24 21:26] VITALS: BP 160/88; PULSE 89; RESP 16; TEMP 36.4; O2SAT 99; BMI 29.5
--- NOTE | 2023-04-24 22:46 | EDS_ITS ---
HPI History of Present Illness Chief Complaint: Dental Informant: patient Onset/Context/Timing Onset: Days (3) Context: Gradual Onset Timing: Continuous Quality: throbbing Location: R mandibular molar Current Severity: Severe Maximum Severity: Severe Narrative Narrative: Patient with worsening tooth ache over the past 3 days. It is a known bad tooth. He states he feels like the pain is going down into his jaw and up toward his right ear. Denies any known fevers or chills. Had a little bit of bleeding from it at 1 point but no other discharge. PFSH PFSH Home Medications clindamycin HCl 150 mg capsule 300 mg (2 x 150 mg) PO 4X/DAY #80 CAPSULES 04/24/23 [Rx Last Taken Unknown] Allergy/AdvReac Type Severity Reaction Status Date / Time Penicillins Allergy Rash Verified 04/24/23 21:28 Surgical History no surgical history Social History Smoking Status: Current every day smoker tobacco type: cigarettes ROS ROS ED Constitutional Constitutional ED: Denies chills or fever(s) Eyes Eyes: Denies change in vision or double vision ENT ENT ED: Reports dental pain and ear pain right; Denies sinus pain or throat swelling Cardiovascular Cardiovascular: Denies chest pain or palpitations Respiratory/Chest Respiratory/Chest: Denies cough or dyspnea Integumentary Denies abscess or rash Neurologic Neurologic: Denies headache(s), paresthesias or weakness EXAM Physical Exam Const Vital Signs: 04/24/23 21:26 Temperature 97.6 F L Temperature Source Temporal Pulse Rate 89 Respiratory Rate 16 Blood Pressure 160/88 H Blood Pressure Mean 112 Pulse Ox 99 Oxygen Delivery Method Room Air Positive well nourished and well developed General Appearance ED: well developed and NAD HEENT HEENT Narrative: Right TM normal. EAC normal and external ear normal. No periauricular or cervical lymphadenopathy. No trismus. No palpable abscess. Significant decayed tooth that is ulcerated into the pulp area laterally tooth #31 estimated due to nearby teeth missing. There is no gingival hypertrophy or bleeding. There is no discharge. There is no palpable abscess. Face and Sinus: sinuses nontender Throat: posterior oropharynx normal Eyes PERRL and EOMs intact bilaterally Neck no lymphadenopathy and supple Resp normal respiratory effort Neuro oriented x3 and CN's II-XII intact bilaterally Sensorium / Orientation: alert Gait (Neuro): normal gait Psych mental status grossly normal and thought process normal Skin no rashes or lesions noted and no wounds MDM MDM MDM Narrative Medical decision making narrative: Patient states he is allergic to penicillins, so we will place on clindamycin and I cautioned him about antibiotic associated diarrhea and C. difficile which is a risk more so than other antibiotics with this. Advised to use yogurt or probiotic while on the antibiotic, he was given a dose of [place] here for the pain and Naprosyn, advised to use [id number] medications at home with clindamycin he is comfortable with that plan. Advised follow-up with a dentist. Discharge Plan Triage Chief Complaint: Dental ED Provider: Jesús Fleming Dx/Rx/DC Orders Clinical Impression: Dental decay, Odontalgia Instructions: ED Dental Pain Prescriptions: New clindamycin HCl 150 mg capsule 300 mg PO 4X/DAY Qty: 80 0RF Primary Care Provider: [facility] Sofía Valenzuela Referrals: [facility],Sofía Daly [Primary Care Provider] - As soon as possible (and/or dentist (there are dental services at [facility])) Disposition Disposition: Home, Self Care
[2023-04-24] MEDS: Clindamycin HCl 150 MG Capsule 300 MG PO (23:01)
[2023-04-24] MEDS: HYDROcodone Bitartrate/Apap 5/325 Tablet PO (23:01)
[2023-04-24] MEDS: Naproxen 250 MG Tablet 500 MG PO (23:01)
== END 2023-04-24 23:03 | disposition home or self-care (01) ==
LOC: ED 22:55
PROVIDERS: Emergency Provider Emergency Medicine; Visit Provider Emergency Medicine
DX: K02.9 Dental caries, unspecified (principal); F17.210 Nicotine dependence, cigarettes, uncomplicated
CPT/HCPCS: 99283

== ENCOUNTER 2025-01-20 07:27 | Emergency (ER) | payer MEDICAID, SELFPAY ==
[2025-01-20 07:28] VITALS: BP 131/86; PULSE 79; RESP 14; TEMP 36.8; O2SAT 100
[2025-01-20 07:44] VITALS: BMI 33.4
[2025-01-20 07:46] VITALS: BP 118/75; PULSE 69; RESP 16; TEMP 36.6; O2SAT 98
[2025-01-20] MEDS: Lidocaine 1% (20 ml mdv) 20 ML Vial INFILT (08:02)
[2025-01-20] MEDS: Smz/Tmp Ds Tablet 1 TABLET PO (08:03)
--- NOTE | 2025-01-20 08:16 | EX.ED.DYSGE1 ---
HPI History of Present Illness Chief Complaint: Wound Check Narrative Narrative: Patient is a 29-year-old male with history of abscess to his face presenting with pain, redness and slight swelling to his left groin area. He noticed irritation yesterday evening. Denies any recent shaving in genital area. Denies any recent sexual partners. Denies any fever or chills. Denies any urinary symptoms. Denies any associated testicular pain. No other complaints or concerns at this time PFSH PFSH Medical History Smoker Home Medications ?Medication ?Instructions ?Recorded ?Last Taken ?Type sulfamethoxazole 800 1 tab PO BID #10 tabs 01/20/25 Unknown Rx mg-trimethoprim 160 mg tablet (Bactrim DS) Allergy/AdvReac Type Severity Reaction Status Date / Time Penicillins Allergy Rash Verified 01/20/25 07:30 Social History Smoking Status: Current every day smoker tobacco type: cigarettes ROS ROS ED Constitutional Constitutional ED: Denies chills or fever(s) Gastrointestinal Gastrointestinal: Denies abdominal pain, nausea or vomiting Genitourinary Genitourinary ED: Denies dysuria Integumentary Reports abscess Hematologic/Lymphatic Hematologic/Lymphatic: Denies easy bleeding or easy bruising EXAM Physical Exam Const Vital Signs: 01/20/25 07:28 01/20/25 07:46 Temperature 98.2 F 97.8 F Temperature Source Temporal Oral Pulse Rate 79 69 Respiratory Rate 14 16 Blood Pressure 131/86 H 118/75 Blood Pressure Mean 101 89 Pulse Ox 100 98 Oxygen Delivery Method Room Air Room Air Positive well nourished and well developed General Appearance ED: well developed and NAD HEENT Reports moist mucous membranes Chest Wall inspection of chest normal Resp normal respiratory effort Cardio regular rate and regular rhythm GI normal to inspection, nondistended, normoactive bowel sounds and non-tender Narrative: Normal external genitalia. No herpetic lesions appreciated. Neuro oriented x3 Sensorium / Orientation: alert Psych mental status grossly normal Skin Skin Narrative: Small area of erythema of the left pubic area proximal/lateral to the shaft of the penis. There is some associated induration and a central raised area with a small pustule, not dense. No associated lymphangitic streaking. MDM MDM MDM Narrative Medical decision making narrative: Patient evaluated for redness pain and swelling to his left pubic area. Differential clued cellulitis, folliculitis, early abscess and HSV infection. Physical exam most consistent with an abscess. Decision made to perform I&D. Area anesthetized with a small amount of 1% lidocaine with epinephrine. Central area deroofed with bevel of the 18-gauge needle with expression of purulent fluid. #11 blade then used to make a stab incision at that area. Further purulence is expressed. Patient tolerated procedure well with no immediate complications. Bacitracin and gauze dressing applied. Patient be treated empirically with Bactrim given the location however he is not having significant surrounding cellulitic findings. Given return precautions. Counseled localized wound care including warm compresses and applying bacitracin 2-3 times a day. Given return precautions. Discharged home in stable and improved condition. Is given first dose of Bactrim as well as Motrin 600 mg for pain control in the emergency room Discharge Plan Triage Chief Complaint: Wound Check ED Provider: Ronel Pearson Dx/Rx/DC Orders Clinical Impression: Abscess Instructions: ED Abscess Incision And Drainage Prescriptions: New sulfamethoxazole-trimethoprim [Bactrim DS] 800-160 mg tablet 1 tab PO BID Qty: 10 0RF Primary Care Provider: Care Physician,No Primary Referrals: Krystal Gee MD [Med Staff - Bicycle Repair Technician, Internal Medicine] Care Physician,No Primary [Primary Care Provider, Medical] Activity Restrictions/Additional Instructions: Apply warm compresses 2-3 times a day to help encourage drainage pressure the first few days. Take the entire course of antibiotics as prescribed. Apply [id number] bacitracin ointment 2-3 times a day to the site. If you have worsening please return to the emergency room. Print Language: Macedonian Disposition Disposition: Home, Self Care
[2025-01-20 08:35] VITALS: BP 124/82; PULSE 74; RESP 16; TEMP 36.6; O2SAT 98
== END 2025-01-20 08:37 | disposition home or self-care (01) ==
PROVIDERS: Emergency Provider Emergency Medicine; Visit Provider Emergency Medicine
DX: L02.214 Cutaneous abscess of groin (principal); F17.210 Nicotine dependence, cigarettes, uncomplicated
CPT/HCPCS: 10060; 99283